=== PATIENT | female | born 1975 | race Caucasian/White ===

== ENCOUNTER → 2018-11-08 | Day surgery (SDC) | payer BC, OTHER ==
--- NOTE | 2018-11-11 19:32 | OP ---
DATE OF OPERATION: 11/08/2018 PREOPERATIVE DIAGNOSIS: Left breast mass, 7 o'clock, 2 cm from the nipple. POSTOPERATIVE DIAGNOSIS: Left breast mass, 7 o'clock, 2 cm from the nipple. PROCEDURE: Left ultrasound guided core biopsy with clip placement. ANESTHESIA: Local. ATTENDING: Sammie Barksdale M.D. ESTIMATED BLOOD LOSS: Minimal. COMPLICATIONS: None. DESCRIPTION OF PROCEDURE: Patient was made aware of the risks and benefits of the procedure and consented. She was placed in supine position. Under sterile conditions with 1% lidocaine for local anesthesia, a small natasha was made in the skin; using a 10-gauge suction biopsy device, via ultrasound control, multiple cores were obtained and submitted to pathology. Likewise, under ultrasound guidance a U-shaped was placed into the biopsy region, well tolerated by patient. Steri-Strips and a sterile bandage were applied. Will contact her with results. SAMMIE BARKSDALE M.D. [id number]
--- NOTE | 2018-11-12 16:34 | PATH ---
Surgical Pathology Report Patient Name: GABO RAMÍREZ [facility]. Rec. #: [id number] /Age/Gender: 1975 (Age: 43) / F Account: [id number] Location: [facility] Taken: 11/08/2018 Received: 11/08/2018 Reported: 11/12/2018 Physicians: Sammie Barksdale M.D. Specimen(s) Received LEFT BREAST 7:00 2 CM FN CORE BIOPSY Clinical History Nonpalpable lesion Ultrasound findings: Suspicious Final Diagnosis BREAST, LEFT, 7:00, 2 CM FN, CORE BIOPSY: BENIGN BREAST TISSUE SHOWING FIBROCYSTIC CHANGES INCLUDING MICROCYSTS, FOCAL USUAL DUCTAL HYPERPLASIA (UDH), STROMAL FIBROSIS AND COLUMNAR CELL CHANGE WITH FEW ASSOCIATED CALCIFICATIONS. Electronically Signed Jacinta Jnoes M.D. Gross Description Received in formalin labeled "left breast biopsy 7:00, 2cmfn," are 4 knight-yellow, cylindrical portions of fibroadipose tissue ranging from 1.3-2.4 cm in length and averaging 0.3 cm in diameter. The specimens are submitted in toto in one cassette. Time to formalin fixation: < 1 minute Total formalin fixation time: Approximately 74 hours. 11/11/2018 [facility]11/11/2018
== END | disposition home or self-care (01) ==
LOC: FRADUS-SUR 15:16
PROVIDERS: ATTEND Surgery Surgical Oncology
PROC: 0HBU3ZX Excision of Left Breast, Percutaneous Approach, Diagnostic (ICD-10-PCS; principal; 2018-11-08)
DX: N60.82 Other benign mammary dysplasias of left breast (principal); N60.32 Fibrosclerosis of left breast; N60.12 Diffuse cystic mastopathy of left breast; N64.89 Other specified disorders of breast; N63.24 Unspecified lump in the left breast, lower inner quadrant
CPT/HCPCS: 19083; 87899; 88305-TC; A4648